=== PATIENT | female | born 1940 | race American Indian/Alaskan Native ===

== ENCOUNTER 2017-06-02 14:02 | Outpatient (CLI) | payer MEDICARE ==
--- NOTE | 2017-06-03 14:59 | Mammography Report ---
BILATERAL DIGITAL SCREENING MAMMOGRAM with CAD: 06/02/17 CLINICAL: Routine screening. COMPARISON:None available. However, a prior mammogram was apparently done at [facility]. FINDINGS: The breasts are mostly fatty. Several left upper posterior asymmetries on the left MLO view require comparison with the prior mammogram.No architectural distortion or suspicious calcifications.The right breast is negative. IMPRESSION: Left asymmetries requiring further evaluation. BI-RADS CATEGORY: 0 -- Additional Evaluation Required RECOMMENDATION: Comparison with a previous mammogram. We will attempt to obtain a prior mammogram from [facility]. If we do not obtain a prior mammogram for comparison within 30 days, a revised report will be issued recommending a recall for additional imaging. Please be advised that the patient should not schedule an appointment for return until adequate time (at least 2 weeks) has passed for us to obtain the prior mammogram. ACR BI-RADS MAMMOGRAPHIC CODES: 0 = Needs additional imaging evaluation; 1 = Negative; 2 = Benign; 3 = Probably benign; 4 = Suspicious; 5 = Malignant; 6 = Known biopsy-proven malignancy COMMENT: 1. Dense breast tissue, i.e., adenosis, fibrocystic changes, etc., may obscure an underlying neoplasm. 2. Approximately 10% of cancers are not detected with mammography. 3. A negative mammography report should not delay biopsy if a clinically suspicious mass is present. COMMENT: Patient follow-up letters are generated via our [employer] application.
== END 2017-06-02 14:03 | disposition home or self-care (01) ==
LOC: MAMMO 14:02
PROVIDERS: ATTEND Internal Medicine
DX: Z12.31 Encounter for screening mammogram for malignant neoplasm of breast (principal)
CPT/HCPCS: 77067; G0202

== ENCOUNTER 2017-09-08 10:39 | Outpatient (CLI) | payer MEDICARE ==
--- NOTE | 2017-09-08 12:06 | Mammography Report ---
Left DIGITAL DIAGNOSTIC MAMMOGRAM : 09/08/17 10:39:00 CLINICAL: Recalled for calcifications and asymmetry. COMPARISON:06/02/17 screening FINDINGS: MLO and ML magnification views were performed with mole markers in place. A posterior asymmetry at the nipple line correlates with a mole marked on today's exam. The calcifications in the upper breast are vascular. IMPRESSION: No mammographic evidence of malignancy. BI-RADS CATEGORY: Benign vascular calcifications. RECOMMENDATION: Routine mammographic screening. ACR BI-RADS MAMMOGRAPHIC CODES: 0 = Needs additional imaging evaluation; 1 = Negative; 2 = Benign; 3 = Probably benign; 4 = Suspicious; 5 = Malignant; 6 = Known biopsy-proven malignancy COMMENT: 1. Dense breast tissue, i.e., adenosis, fibrocystic changes, etc., may obscure an underlying neoplasm. 2. Approximately 10% of cancers are not detected with mammography. 3. A negative mammography report should not delay biopsy if a clinically suspicious mass is present. COMMENT: Patient follow-up letters are generated via our [employer] application.
== END 2017-09-08 10:40 | disposition home or self-care (01) ==
LOC: MAMMO 10:39
PROVIDERS: ATTEND Internal Medicine
DX: R92.2 Inconclusive mammogram (principal); R92.1 Mammographic calcification found on diagnostic imaging of breast